=== PATIENT | male | born 1940 | race Caucasian/White ===

== ENCOUNTER 2016-08-25 12:30 | Inpatient (IN) | payer MEDICARE ==
[~2016-08-25] VITALS: Ht 182.9 cm; Wt 79.4 kg
--- NOTE | ~2016-08-25 | OR ---
PATIENT'S NAME: IRVING SHI [facility] AGE: 76 Y [address] ROOM: [id number] [place], [place] [address] LOCATION: GPCU ADMIT DATE: 08/25/2016 OR/Procedure Report DISCHARGE DATE: FAMILY PHYSICIAN: Dylon Clarke MD ATTENDING PHYSICIAN: Aashish Jackson SURGEON: Yvon Gordon DO GOLF COURSE PATROLLER: DATE OF PROCEDURE: 08/26/2016 PREOPERATIVE DIAGNOSIS: Right hydro-pneumothorax. POSTOPERATIVE DIAGNOSIS: Right hydro-pneumothorax with severely entrapped right middle lobe, right lower lobe, and partially entrapped right upper lobe. PROCEDURE PERFORMED: Right thoracotomy with total decortication and right middle lobectomy. BRIEF HISTORY: Mr. Shi is a 76-year-old white male who initially presented to [facility], on 08/04, with shortness of breath. He was evaluated and found to have pleural effusion. He underwent thoracentesis of 2 L of fluid. At that time, his lung failed to expand. A bronchoscopy was performed and failed to find any endobronchial lesions. He was ultimately discharged and on followup was found to have recurrence of the effusion and another thoracentesis was performed. He again failed to have re-expansion of the right lung. Cytology on both specimens was negative for malignancy. He was seen in the office again by Dr. Jackson, and found to have the persistent hydro-pneumothorax. He was admitted to [facility] and I was asked to see him in consultation. PROCEDURE DETAILS: He has been brought to the operative suite today for the above-noted procedure. He was sterilely prepped and draped in the usual fashion for right thoracotomy, placed into a lateral decubitus position. Dual- lumen endotracheal tube had been placed by Department of Anesthesiology. Posterior lateral incision was created 2 fingerbreadths below the scapular tip and we entered the pleural space in the fifth intercostal space. We found approximately 800 mL of serous fluid. This was evacuated and again sent for both cytologic and microbiologic sampling. Inspection of the pleural space showed marked entrapment of all 3 lobes, the middle lobe especially was entrapped in approximately the size of a lemon and the lower lobe was equally entrapped and upper lobes to only slightly lesser extent. There was some loose gelatinous collection of fluid as well. This was evacuated and sent for cytologic evaluation. Extensive decortication was carried out over the upper and lower lobes. Given the marked contraction and size of the middle lobe, I elected just to simply perform a middle lobectomy. The arterial supply to the middle lobe was dissected free and divided with vascular stapler as well as PATIENT'S NAME: IRVING SHI [facility] AGE: 76 Y [address] ROOM: [place] [address] [facility] ADMIT DATE: 08/25/2016 OR/Procedure Report DISCHARGE DATE: FAMILY PHYSICIAN: Dylon Clarke MD ATTENDING PHYSICIAN: Aashish Jackson the venous system and then the bronchial system. Two chest tubes were now placed, approximately 300 mL of blood loss was noted. Copious amounts of saline was used to irrigate the pleural space and we closed the intercostal incision with 4 [id number] #1 Ethibonds. Muscular layer was closed with running 0 Vicryl, adipose layer was closed with 2-0 Vicryl, and skin with 4-0 Monocryl. Chest tube was placed to the canister, however, no suction was turned on secondary to the air leak taking too much away from the ventilator and will be placed to suction once he was extubated. He was extubated and transferred to the recovery room with fairly large air leak as expected secondary to the total decortication. The patient otherwise tolerated the procedure well. No evidence of obvious malignancy or infection were encountered. DO ROSANA SMILEY/oswaldol /[id number] CC: Dylon Clarke MD d: 08/30/16 1240 t: 08/31/16 0754, OPERATIVE SUMMARY
--- NOTE | ~2016-08-25 | CON ---
PATIENT'S NAME: IRVING SHI [facility] AGE: 76 Y [address] ROOM: [place] [address] LOCATION: GPCU ADMIT DATE: 08/25/2016 Consultation DISCHARGE DATE: FAMILY PHYSICIAN: Dylon Clarke MD ATTENDING PHYSICIAN: Aashish Jackson DATE OF CONSULTATION: 08/25/2016 REFERRING PHYSICIAN: Aashish Jackson MD BRIEF HISTORY: Mr. Shi is a 76-year-old male who has had difficulties with recurring pleural effusion/hydropneumothorax. He has had 3 previous thoracentesis now with failure to re-expand the lung, and he presented to Dr. Jackson today with increasing shortness of breath. He had been seen by Dr. Arana as well in the past, and after a thoracentesis, a bronchoscopy was performed in July which was negative for any endobronchial lesions. All cytology to date has been negative. The patient states this has been a problem for the past several weeks. He states that he is short of breath today and does have some pain in his back which he relates to the fluid as it continues to build. Otherwise, he has no complaints. PAST MEDICAL HISTORY: Significant for the recurring hydropneumothorax, reportedly for congestive heart failure, COPD, and atrial fibrillation. PAST SURGICAL HISTORY: Significant for cataracts. CURRENT MEDICATIONS: The patient is unaware of what medicines he is taking at this time. 1. Does state he thinks he is taking some blood pressure medicine. 2. He has been on Coumadin in the past, has not taken any recently. 3. He has also been on Xarelto in the past, has not taken any recently. 4. He is on oxygen at home at this point in time, although this is a recent addition. SOCIAL HISTORY: The patient is a former smoker, quitting within the past month. REVIEW OF SYSTEMS: As per the history of chief complaint. PHYSICAL EXAMINATION: GENERAL: An alert and oriented white male, appears older than his stated age. He is wearing oxygen. PATIENT'S NAME: IRVING SHI [facility] AGE: 76 Y [address] ROOM: [address] [address] LOCATION: GPCU ADMIT DATE: 08/25/2016 Consultation DISCHARGE DATE: FAMILY PHYSICIAN: Dylon Clarke MD ATTENDING PHYSICIAN: Aashish Jackson HEENT: Examination shows his head to be normocephalic with no evidence of trauma. Eyes: He has marked deviation of the right eye and states he cannot see out of this eye. The left eye is normal in appearance. Nose is discolored. He states it has always been like this since he can remember. To me, it gives the appearance of amiodarone-related skin changes, but he cannot recall whether he has been on this medicine in the past. HEART: Irregularly irregular without gallop. LUNGS: Markedly diminished on the right, clear on the left, with occasional end-expiratory wheeze. He does have somewhat of a pectus excavatum as well. ABDOMEN: Soft and nontender. Bowel sounds are positive. No organomegaly is appreciated. EXTREMITIES: His upper extremities show no evidence of cyanosis, clubbing, or edema. His lower extremities do show evidence of venous stasis changes. He has mild pitting edema to the pretibial areas. NEUROLOGICAL: Cranial nerves 2 through 12 are grossly intact. He is alert and oriented x3. LABORATORY DATA: Review of the CAT scan shows hydropneumothorax on the right. This CAT scan is approximately 3 weeks old. His chest x-ray confirms similar findings. It shows evidence of trapped right middle and right lower lobe and right upper lobe. No masses are appreciated. IMPRESSION: 1. Right hydropneumothorax with trapping of right lobular segments. 2. Atrial fibrillation. 3. Reported history of heart failure in the remote past, the patient states approximately 10 years ago. He has had a recent echocardiogram per his recollection, but none of these records are available at this point. We will try and malloy them down. 4. Chronic obstructive pulmonary disease. He quit smoking approximately one month ago. PLAN AND RECOMMENDATIONS: We will try and malloy down some medical records, but he will need a right thoracotomy with total decortication. I have explained to him and his family the risks, benefits, and alternatives of this procedure including, but not limited to bleeding requiring transfusion, return to the operative suite, possibilities for prolonged air leak, prolonged chest tube, possibilities for pulmonary resection, possibilities for postoperative ventilation, and ICU stays. At this point in time, he agrees to proceed. We will tentatively plan to proceed in the a.m. of 08/26. PATIENT'S NAME: IRVING SHI [facility] AGE: 76 Y [address] ROOM: [place] [address] [facility] ADMIT DATE: 08/25/2016 Consultation DISCHARGE DATE: FAMILY PHYSICIAN: Dylon Clarke MD ATTENDING PHYSICIAN: Aashish Jackson DO ROSANA SMILEY/sol /[id number] CC: Dylon Clarke MD d: 08/25/16 1512 t: 08/26/16 163, CONSULTATION REPORT
--- NOTE | ~2016-08-25 | OR ---
PATIENT'S NAME: IRVING SHI [facility] AGE: 76 Y [address] [id number] [address] LOCATION: GICU ADMIT DATE: 08/25/2016 OR/Procedure Report DISCHARGE DATE: FAMILY PHYSICIAN: Dylon Clarke MD ATTENDING PHYSICIAN: Aashish Jackson SURGEON: Hany Francisco MD INTELLECTUAL PROPERTY LEGAL ASSISTANT: DATE OF PROCEDURE: 09/16/2016 PROCEDURE PERFORMED: The following lines were placed during the patient's right thoracotomy and repair of bronchopleural fistula. INDICATIONS FOR PROCEDURE: Irving Shi is a 76-year-old gentleman with a long cardiac history, who has chronic atrial fibrillation, congestive heart failure, type 2 diabetes, mild dementia, and history of congestive failure. He presented with hydropneumothorax necessitating a right thoracotomy and partial resection of lung on that side. 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 He will require a central line and an arterial line for tight control of blood pressure and for provision of vasoactives and monitoring CVP. An epidural will be used for postoperative pain per surgeon's request. A detailed discussion of risks and benefits was undertaken with Mr. Shi last night by Dr. Pierce. He agreed to the plan as stated. I met him in the preop holding area. He was relatively oriented and agreed to an epidural, which was placed in the preop holding area and I will refer the reader to the epidural sheet for details on that. Suffice it to say, it went well. DESCRIPTION OF PROCEDURE: He was taken to OR #4 where he underwent uneventful induction of general anesthesia and intubation with a 37 left double-lumen endotracheal tube. After this was accomplished and the airway secured, positioning was checked by fiberoptic bronchoscopy and procedure #[address] which is a central line. The patient has quite a bit of subcutaneous emphysema, and when I attempted to image his right internal jugular vein, all I got was white screen. I think this is due to the air layer underneath his skin and consequently, I placed the line using landmarks rather than ultrasonic guidance. I washed my hands and gloved and gowned while his neck was being prepped. He was placed in Trendelenburg position. Utilizing the apex of the lesser triangle, I inserted an 18-gauge needle just lateral to the carotid pulse obtaining dark venous blood on the first pass. The wire threaded without difficulty. A small skin diana was made, a dilator passed, and a quad lumen 16 cm, 8-1/2-Slovenian central line was placed and sutured in with 2-0 silk. All lumens flushed and vane freely. CVP was 16 on transduction. A sterile Tegaderm was used to cover the area, and at that point, Jovita Jennings, my anesthesia nurse placed a central line in the patient's right arm without PATIENT'S NAME: IRVING SHI [facility] AGE: 76 Y [address] ROOM: [address] [address] LOCATION: [facility] ADMIT DATE: 08/25/2016 OR/Procedure Report DISCHARGE DATE: FAMILY PHYSICIAN: Dylon Clarke MD ATTENDING PHYSICIAN: Aashish Jackson. Thank you very much for allowing me to participate in Mr. Shi's care. If you have any questions regarding these lines, please do not hesitate to call. HANY L MD PRESTON FRANCISCO/sol /[id number] d: 09/16/16 1700 t: 10/04/16 1120, OPERATIVE SUMMARY
--- NOTE | ~2016-08-25 | OR ---
PATIENT'S NAME: IRVING SHI [facility] AGE: 76 Y [address] ROOM: [address] [address] LOCATION: GPCU ADMIT DATE: 08/25/2016 OR/Procedure Report DISCHARGE DATE: 09/29/2016 FAMILY PHYSICIAN: Dylon Clarke MD ATTENDING PHYSICIAN: Aashish Jackson SURGEON: Yvon George DO MICROFILMING DOCUMENT PREPARER: DATE OF PROCEDURE: 09/16/2016 PREOPERATIVE DIAGNOSIS: Persistent air leak, history of trapped lung. POSTOPERATIVE DIAGNOSIS: Persistent air leak, history of trapped lung. PROCEDURE: Right thoracotomy with right lower lobectomy. BRIEF HISTORY: Mr. Shi is status post decortication with right middle lobectomy approximately 5 or 3 weeks ago. He has been had a persistent air leak that has waxed and waned, but has always been persistent. We have brought him back to the operative suite today for continued management. He has been sterilely prepped and draped in usual fashion after intubation dual- lumen endotracheal tube placed into a lateral decubitus position and his previous thoracotomy incision was reopened and we entered in the fifth intercostal space. All suture material was removed. Electrocautery used for dissection and hemostasis. The lung was decompressed. Right lower lobe was grossly and palpably consolidated. No stump leak was noted from the middle lobectomy resection and we circumferentially dissected through some scar tissue around the hilar area and gained control of the pulmonary artery and this is divided under vascular stapler and continued dissection was carried out carefully around the inferior pulmonary vein and this was also ligated with a vascular stapler and continued dissection with a pulmonary staplers to divide the parenchyma of the left upper and lower lobes was completed and then the bronchus of the lower lobe was divided with a stapler as well. The lower lobe was passed off. There was some air leak from the upper lobe, from the dissection was used to enter the pleural space, was approximated with 3-0 Prolene and the pleural patch was placed on to the area. Two chest tubes were replaced in the pleural cavity. Intercostal space was approximated again and then the muscular layers were closed in a layered fashion and incision was closed in layered fashion. Chest tubes placed to suction. The patient was extubated and transferred to recovery area in stable condition. YVON GEORGE DO PATIENT'S NAME: IRVING SHI [facility] AGE: 76 Y [address] ROOM: [place] [address] LOCATION: GPCU ADMIT DATE: 08/25/2016 OR/Procedure Report DISCHARGE DATE: 09/29/2016 FAMILY PHYSICIAN: Dylon Clarke MD ATTENDING PHYSICIAN: Aashish Jackson/sol /[id number] d: 10/03/169 t: 10/04/16 08, OPERATIVE SUMMARY
--- NOTE | ~2016-08-25 | CON ---
PATIENT'S NAME: IRVING WANG [facility] AGE: 76 Y [address] ROOM: [place] [address] LOCATION: GPCU ADMIT DATE: 08/25/2016 Consultation DISCHARGE DATE: FAMILY PHYSICIAN: Dylon Clarke MD ATTENDING PHYSICIAN: Aashish Jackson DATE OF CONSULTATION: 08/31/2016 REFERRING PHYSICIAN: Aashish Jackson MD REASON FOR CONSULT: Depressed mood, confusion, and agitation. HISTORY OF PRESENT ILLNESS: The patient is a 76-year-old male with a history of recurring pleural effusion and hydropneumothorax, status post thoracotomy. He was reportedly depressed and suicidal, then became confused, agitated, and forgetful, requiring as needed olanzapine. The patient is seen today in his room. He admits that he had become depressed and wondered how he was going to cope at home after his surgery, but yesterday, he became confused, did not know where he was and started "hallucinating. He says that he saw strange people in his room and did not know what to make of it. He became scared and thought that they were out to get him. He, however, states that he is doing pretty good today. He denies being depressed and looks forward to returning home. He denies other depressive symptoms and has no anxiety. The patient says that he now knows where he is and that he has "not hallucinated again." He denies other psychotic symptoms. He denies thoughts of self-harm or suicidal thoughts. He states that he was simply overwhelmed after his surgery. PAST PSYCHIATRIC HISTORY: The patient reports no prior history of psychiatric illness or hospitalization. He denies prior suicide attempts or history of self harm. PAST MEDICAL HISTORY: COPD, diabetes, coronary artery disease, recurrent hydropneumothorax, congestive heart failure, atrial fibrillation. MEDICATIONS: See medication list. ALLERGIES: NO KNOWN DRUG ALLERGIES. PAST FAMILY AND SOCIAL HISTORY: The patient is and has 3 adult children. He denies a history of trauma. 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 the patient PATIENT'S NAME: IRVING WANG [facility] AGE: 76 Y [address] ROOM: [place] [address] LOCATION: GPCU ADMIT DATE: 08/25/2016 Consultation DISCHARGE DATE: FAMILY PHYSICIAN: Dylon Clarke MD ATTENDING PHYSICIAN: Aashish Jackson denies current alcohol, tobacco, or illicit drug use. He is unaware of any history of mental illness in his family. REVIEW OF SYSTEMS: Ten systems reviewed and all others negative, except as noted in the history. MENTAL STATUS EXAMINATION: The patient is seated in a chair by his bed. He is pleasant and cooperative with the interview. He makes good eye contact. He has a normal psychomotor activity. His speech is normal in rate and volume. He describes his mood as euthymic. His affect is reactive and spontaneous, and he smiles easily. His thoughts are logical and goal directed. He denies current suicidal, homicidal, or violent ideations. He denies hallucinations, and no delusions are noted at interview. He is alert and oriented to person and place, but poorly oriented to time. His concentration is impaired. His memory recall is intact. His intelligence appears average. His insight and judgment are good. DIAGNOSES: 1. Delirium. 2. Adjustment disorder, unspecified. PLAN: Discussed assessment and plan with the patient and nursing staff. Reportedly, he had responded to as needed olanzapine. Recommend switching this medication to 5 mg at bedtime. Monitor the patient for adverse reactions. Continue other management and review as appropriate. Thank you for your consult. MD KATLIN PONCE/sol /[id number] d: 08/31/16 2357 t: 09/01/16 1329, CONSULTATION REPORT
--- NOTE | ~2016-08-25 | HP ---
PATIENT'S NAME: IRVING SHI [facility] AGE: 76 Y [address] ROOM: [place] [address] LOCATION: GPCU ADMIT DATE: 08/25/2016 History & Physical DISCHARGE DATE: FAMILY PHYSICIAN: Dylon Clarke MD ATTENDING PHYSICIAN: Aashish Jackson DATE OF SERVICE: CHIEF COMPLAINT: Shortness of breath. HISTORY OF PRESENT ILLNESS: Mr. Shi is a 76-year-old gentleman admitted with a recurrent/persistent hydropneumothorax. He initially presented to [facility] on 08/04/2016 with shortness of breath. He was evaluated and found to have a pleural effusion. He underwent thoracentesis with removal of 2 L of fluid. His lungs failed to expand, however. Dr. Arana did a bronchoscopy and failed to find any endobronchial lesions. He was ultimately discharged. In followup, he was found to have recurrence of his pleural effusion which again was tapped on August 11. He again failed to have re-expansion of the right lung. Cytology on both the specimens from his right pleural space was negative for malignant cells. He was seen again today in the office with persistent hydropneumothorax. He was admitted then for Thoracic Surgery intervention. PAST MEDICAL HISTORY: ALLERGIES: TO NO MEDICATIONS. ILLNESSES: 1. Chronic obstructive pulmonary disease. 2. Diabetes. 3. Coronary artery disease. MEDICATIONS: Include: 1. Nebulized albuterol. 2. Carvedilol 6.25 p.o. b.i.d. 3. Potassium 10 mEq daily. 4. Lasix 40 mg twice a day. 5. Metformin 1000 mg twice a day. 6. Oxygen 2.5 L at night and with activity. 7. Symbicort inhaler 2 puffs b.i.d. PATIENT'S NAME: IRVING SHI [facility] AGE: 76 Y [address] ROOM: [place] [address] LOCATION: GPCU ADMIT DATE: 08/25/2016 History & Physical DISCHARGE DATE: FAMILY PHYSICIAN: Dylon Clarke MD ATTENDING PHYSICIAN: Aashish Jackson FAMILY HISTORY: Negative for lung disease. SOCIAL HISTORY: . Lives independently in [place]. REVIEW OF SYSTEMS: No fever, chills, sweats, nausea, vomiting, diarrhea, chest pain, palpitations, neurologic, or psychiatric complaints. PHYSICAL EXAMINATION: GENERAL: Elderly chronically ill-appearing gentleman in no distress, but he is dyspneic when he walks. HEENT: Rhinophyma. Bilateral arcus senilis. CHEST: Hyperinflated. LUNGS: Diminished breath sounds on the right. HEART: Regular. ABDOMEN: Nontender. EXTREMITIES: Trace of edema. No clubbing. ASSESSMENT: Recurrent hydropneumothorax. PLAN: Thoracoscopic Surgery consultation. MD PONCHO MONTOYA/modkamaljit /[id number] CC: MD Yvon Roper DO D: [id number] T: [id number] HISTORY & PHYSICAL
--- NOTE | ~2016-08-25 | DS ---
PATIENT'S NAME: IRVING WANG [facility] AGE: 76 Y [address] ROOM: [id number] [place], [place] [address] LOCATION: GPCU ADMIT DATE: 08/25/2016 Discharge Summary DISCHARGE DATE: 09/29/2016 FAMILY PHYSICIAN: Dylon Clarke MD ATTENDING PHYSICIAN: Yvon George The patient is a 76-year-old white male with a right hydropneumothorax who was admitted by Dr. George to [facility] regarding said condition. The patient initially presented to the [facility] on August 04, 2016, with complaints of shortness of breath. He was evaluated in their facility and was found to have a pleural effusion. He underwent a thoracentesis yielding 2 L of fluid. He did not have reexpansion of his lung at that time. He underwent a bronchoscopy. There were no endobronchial lesions. He was then discharged and then later found in followup to have recurrence of the effusion and underwent another thoracentesis. Again, he did not have reexpansion of his right lung. All cytology was negative for malignancy. He re-presented to Dr. Jackson's office with complaints of shortness of breath. He was found to have the hydropneumothorax and was admitted to [facility]. Dr. George proceeded with a right thoracotomy with total decortication and a right middle lobectomy. This was on August 26, 2016. Following the procedure, the patient transferred to the progressive care floor. He had an epidural in place. A chest tube was placed at the time of this surgical procedure. The patient was found to have a preoperative urinary tract infection and was treated with appropriate antibiotic therapy. In addition, the patient was seen by wound nurses for his severe bilateral lower extremity edema for which he had weeping of the legs. They did wrap and monitor his legs throughout the hospital stay. The patient did have an epidural placed for pain control at the time of surgery. Pain management was quite good overall. The patient did work with PT, OT, and Pulmonary Rehab for strengthening purposes. His chest tube output and air leak were monitored. The patient did have a very significant air leak following surgery as well as copious amounts of chest tube output. He was diuresed as well with Lasix. He was monitored with a proBNP level which did show some decline after a few days. On August 31, 2016, the epidural was shut off. The patient did have some confused periods. He was agitated, depressed, and suicidal. He actually wrote a suicide note. He was started on 10 mg of Zyprexa until which time Dr. Barajas from [facility] could evaluate the patient for suicidal ideations. The patient was recommended to be placed on 5 mg of olanzapine at bedtime. The patient was also found to have an elevated TSH and thyroid medication was adjusted. Again, the patient continued to have high chest tube output as well as significant air leak with fairly significant subcutaneous air throughout. We were eventually able to get out his Baez catheter. Previous attempts were fraught with urinary retention. However, the Baez catheter was successfully PATIENT'S NAME: [facility]ING [facility] AGE: 76 Y [address] ROOM: [address] [address] LOCATION: GPCU ADMIT DATE: 08/25/2016 Discharge Summary DISCHARGE DATE: 09/29/2016 FAMILY PHYSICIAN: Dylon Clarke MD ATTENDING PHYSICIAN: Yvon George. We did put the patient on high-flow for a period of time to try to clear out the subcutaneous air. This persisted for approximately 1 week before it began to relent. At day 20, the patient continued with persistent air leak and significant pleural fluid output which prevented us from being able to remove the chest tube. We therefore did need to discuss with the patient going back to the OR secondary to the bronchopleural fistula and proceed with a right thoracotomy with right lower lobectomy. The patient consented and the procedure was performed on 09/16/2016, by Dr. George. Following the surgery, the patient went back up to the progressive care floor. He was found to be hypotensive postoperatively. He did require a adrienne and Levophed drip, and therefore went up to the ICU. We did have to shut his epidural off secondary to the hypotensive issues. His Zyprexa was decreased to 2.5 mg at bedtime. The patient's demeanor did not improve. The patient was transferred to the progressive care floor. He continued to work with PT/OT and pulmonary rehab. We did add colchicine to his medication regimen to help decrease the fluid output. We were able then to get the Zyprexa decreased. Overall, the patient was feeling much better. We were able to discontinue his Baez catheter yet again as we had placed this at the time of surgery. We did place his chest tube to water seal; however, he still had a persistent air leak and fair quantities of chest tube output. The patient was getting pretty down about remaining in the hospital and we did talk about placing the chest tube to a Heimlich valve connected to a Baez with a leg bag kit. We discussed this with the patient's ex- who does help take care of him and home health care services. All in all, everyone felt that it was manageable and therefore we proceeded in transitioning this over to the Heimlich. The patient was therefore found stable for discharge home on 09/29/2016. Incidentally, the patient's pathology from August 26, 2016, returned showing fibrosis, chronic inflammation, and granulation tissue. His pathology on September 16, 2016, showed right lung with organization of pneumonia and infarction associated with pleuritis/clinically bronchopleural fistula. DISCHARGE ORDERS: Diet with no restrictions. Activity levels as tolerated. Dressing changes to include Allevyn foam dressing on the proximal thoracotomy incision for protection only. May change every 3 days/p.r.n. to decrease risk of tearing off the scab. Change the chest tube site dressing p.r.n. Change the bilateral forearm dressings daily. These are secondary to skin tear. Home Health is to keep documentation of the total 24-hour output coming from the chest bag connected to the Heimlich valve and the total to be reported. They may empty the b.i.d./p.r.n., but does not keep an accurate total. SECONDARY DIAGNOSES: 1. 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 [place] [facility] [place] [place] [address] LOCATION: GPCU ADMIT DATE: 08/25/2016 Discharge Summary DISCHARGE DATE: 09/29/2016 FAMILY PHYSICIAN: Dylon Clarke MD ATTENDING PHYSICIAN: Yvon George. 2. Congestive heart failure. 3. Chronic obstructive pulmonary disease. 4. History of atrial fibrillation. 5. History of tobacco abuse. 6. Diabetes mellitus. 7. Postop delirium. 8. Hypothyroidism with a TSH of 11.4 and a free T4 of 1.0. 9. Urinary retention. FOLLOWUP APPOINTMENTS: Dr. George and Saritha on 10/06/2016 at 1:00 p.m., Dr. Jackson on 10/13/2016 at 11:45, and Dr. Guerrero on 10/17/2016 at 10:45. DISCHARGE MEDICATIONS: 1. Glucophage 1000 mg twice a day. 2. K-Tab 20 mEq daily. 3. Lasix 40 mg daily. 4. Coreg 6.25 mg daily. 5. Albuterol 2 mg oral t.i.d. 6. Symbicort 1 puff per inhalation twice a day. 7. Colchicine 0.6 mg twice a day. 8. Pepcid 20 mg daily. 9. Amaryl 2 mg daily. 10. Levaquin 500 mg daily. 11. Levothyroxine 50 mcg daily. 12. Polyethylene glycol 17 g daily. 13. Flomax 0.4 mg at bedtime. 14. Olmitz 5/325 one to two every 4-6 hours as needed. 15. Tylenol 650 mg p.r.n. The patient's ex- verbalized understanding of the patient's discharge orders. The patient discharged to home with home health care services for whom we will be in contact with. The patient in stable condition. PADMINI NORIEGA APRN FOR YVON GEORGE, DLQ/modl /[id number] d: 10/15/16 0421 t: 10/17/16 1605, DISCHARGE SUMMARY
--- NOTE | ~2016-08-25 | PUL ---
PATIENT'S NAME: IRVING WANG [facility] AGE: 76 Y [address] ROOM: [place] [address] LOCATION: GPCU ADMIT DATE: 08/25/2016 Pulmonary DISCHARGE DATE: 09/29/2016 FAMILY PHYSICIAN: Dylon Clarke MD ATTENDING PHYSICIAN: Aashish Jackson NAME OF PROCEDURE: Pulmonary Function Test DATE OF PROCEDURE: September 22, 2016 TECH: NOELLE Núñez REASON FOR EVALUATION: COPD PROCEDURES PERFORMED: Spirometry with bronchodilator assessment. Measurement of maximum voluntary ventilation. Measurement of lung volumes. Measurement of diffusion capacity. RESULTS: Spirometry showed pre bronchodilator FVC was 1.66 liters, 36% of predicted; post bronchodilator FVC was 1.8 liters, 39% predicted; pre bronchodilator FEV1 was 1.26 liters, 37% predicted; post-bronchodilator FEV1 was 1.1 liters, 33% of predicted. FEV1/FVC was 76 %. FEF 25- 75% was 1.06 liters, 43% of predicted. Maximum voluntary ventilation was 40 liters/minute, 31% of predicted. This data did not change significantly following an inhaled bronchodilator. Lung volumes showed total lung capacity was 5.12 liters, 74% of predicted; functional residual capacity was 4.05 liters, 97% of predicted. Residual volume was 2.79 liters, 102% of predicted. Diffusion capacity not adjusted for hemoglobin was 37% of predicted. Single breath alveolar volume was 2.53 liters which is a poor estimate of total lung capacity. The flow volume loop pattern is restrictive. PHYSICIAN INTERPRETATION: The above data and the corresponding flow volume curves are most compatible with restrictive defect. There is evidence severe gas transfer impairment. MD ZENON LUCIO/josé miguel PATIENT'S NAME: IRVING WANG [facility] AGE: 76 Y [address] ROOM: [place] [address] LOCATION: GPCU ADMIT DATE: 08/25/2016 Pulmonary DISCHARGE DATE: 09/29/2016 FAMILY PHYSICIAN: Dylon Clarke MD ATTENDING PHYSICIAN: Aashish Jackson /[id number] dtt: 10/06/16 1723 , BRYAN INFANTE dtd: 09/30/16 0813
--- NOTE | ~2016-08-25 | OR ---
PATIENT'S NAME: IRVING WANG [facility] AGE: 76 Y [address] ROOM: [place] [address] LOCATION: CU ADMIT DATE: 08/25/2016 OR/Procedure Report DISCHARGE DATE: FAMILY PHYSICIAN: Dylon Clarke MD ATTENDING PHYSICIAN: Aashish Jackson SURGEON: Good Banks MD AGRONOMY SUPERVISOR: DATE OF PROCEDURE: 08/26/2016 PROCEDURE: Right internal jugular central venous catheter. INDICATION: The patient is going to need right thoracotomy with decortication and lobe resection. DESCRIPTION OF PROCEDURE: The patient was lying supine on the operating table in slight Trendelenburg position. The right neck and chest were prepped with Betadine x3, Betadine 2%. Maximal sterile barriers were worn at all times. Ultrasound was used to visualize internal jugular vein and real-time guidance of the introducer needle. Single stick dark nonpulsatile blood found on return and the wire was threaded easily. The ultrasound was then used to visualize the wire and internal jugular vein. The skin nicked, dilated; and a 2-lumen, 8-Slovak, 16-cm catheter was placed over the wire without complication and the wire was removed. It was sutured in place. All ports withdrew. Blood flushed easily. Sterile dressing applied on top. Chest x- ray ordered in the ICU. GOOD BANKS MD JJP/modl /[id number] d: 08/26/163 t: 09/05/16 1251, OPERATIVE SUMMARY
[2016-08-25] MEDS ORDERED: GLUCOPHAGE1000 MG PO (14:18)
[2016-08-25] MEDS ORDERED: K-TAB 10MEQ10 MEQ PO (14:19)
[2016-08-25] MEDS ORDERED: LASIX20 MG PO (14:20)
[2016-08-25] MEDS ORDERED: COREG6.25 MG PO (14:21)
[2016-08-25] MEDS ORDERED: ALBUTEROL S2 MG/5 ML PO (14:21)
[2016-08-25] MEDS ORDERED: SYMBICORT 16010.2 GM INH (14:21)
[2016-08-25] MEDS ORDERED: OXYGEN M-15 INH (14:26)
[2016-08-25 14:40] LABS: PROTIME 12.6 SECONDS (9.8-11.4)
[2016-08-25 14:42] LABS: ALBUMIN 3.1 gm/dL (3.5-5.0); ANION GAP 12.2 (10.0-19.0); CALCIUM 8.8 mg/dL (8.5-10.5); CREATININE 0.8 mg/dL (0.6-1.3); TOTAL BILIRUBIN 1.8 mg/dL (0.0-1.5); TOTAL PROTEIN 7.3 g/dL (6.0-8.4)
[2016-08-25 14:43] LABS: POTASSIUM 4.2 mMol/L (3.7-5.1)
[2016-08-25 15:15] LABS: BASOPHIL % 0.4 %; EOSINOPHIL # 0.1 K/uL (0.0-0.5); EOSINOPHIL % 0.8 %; HEMATOCRIT 42.5 % (37.0-53.0); HEMOGLOBIN 14.8 g/dL (11.0-16.0); IMMATURE GRANULOCYTE # 0.1 K/uL (0.0-0.3); IMMATURE GRANULOCYTE % 0.6 %; LYMPHOCYTE # 1.6 K/uL (0.8-4.0); LYMPHOCYTE % 16.4 %; MCH 32.7 pg (27.0-34.0); MCHC 34.8 gm/dL (32.0-36.5); MCV 93.8 fl (83.0-98.0); MONOCYTE # 1.3 K/uL (0.0-1.0); MPV 11.1 fl (9.4-12.4); NEUTROPHIL # (ANC) 6.8 K/uL (1.4-9.0); NEUTROPHIL % 68.8 %; NRBC % 0 /100WBC (0-0.00); PLATELET COUNT 181 K/uL (150-450); RBC 4.53 M/uL (3.50-5.50); RDW-CV 13.1 % (11.9-14.6); WBC 9.9 K/uL (4.0-11.0)
[2016-08-25 15:57] LABS: BLOOD URINE 10 /UL (NEGATIVE); COLOR URINE YELLOW (YELLOW); GLUCOSE URINE NEGATIVE (NEGATIVE); KETONE URINE NEGATIVE (NEGATIVE); LEUKOCYTES URINE 25 /UL (NEGATIVE); NITRITE URINE NEGATIVE (NEGATIVE); PROTEIN URINE 15 mg/dL (NEGATIVE); SPEC GRAVITY URINE 1.015 (1.003-1.035); TURBIDITY URINE CLEAR (CLEAR); UROBILINOGEN URINE 12 mg/dL (NORMAL)
[2016-08-25 16:07] LABS: EPITHELIAL URINE 0-2 #/HPF (NEGATIVE); RBC URINE 0-2 #/HPF (NEGATIVE)
[2016-08-25 16:25] LABS: BACTERIA URINE FEW (NEGATIVE)
[2016-08-25 16:26] LABS: AMORPHOUS URINE 1+ (NEGATIVE)
[2016-08-26 11:13] LABS: BICARBONATE 29.1 mmol/L (18.0-23.0); PCO2 45 mmHg (35-45); PO2 427 mmHg (80-90)
[2016-08-26 11:14] LABS: POTASSIUM 3.7 mEq/L (3.7-5.1); SODIUM 131 mEq/L (135-145)
[2016-08-26 13:13] LABS: HEMATOCRIT 35.2 % (37.0-53.0)
[2016-08-27 05:33] LABS: ALBUMIN 2.6 gm/dL (3.5-5.0); CREATININE 0.9 mg/dL (0.6-1.3); PHOSPHORUS 3.1 mg/dL (2.5-4.9)
[2016-08-27 05:37] LABS: CALCIUM 7.2 mg/dL (8.5-10.5)
[2016-08-27 05:58] LABS: BASOPHIL # 0.1 K/uL (0.0-0.2); BASOPHIL % 0.6 %; EOSINOPHIL % 0.1 %; HEMATOCRIT 37.8 % (37.0-53.0); HEMOGLOBIN 12.6 g/dL (11.0-16.0); IMMATURE GRANULOCYTE # 0.1 K/uL (0.0-0.3); IMMATURE GRANULOCYTE % 0.6 %; LYMPHOCYTE # 2.1 K/uL (0.8-4.0); LYMPHOCYTE % 14.4 %; MCH 31.3 pg (27.0-34.0); MCHC 33.3 gm/dL (32.0-36.5); MONOCYTE # 1.5 K/uL (0.0-1.0); MONOCYTE % 10.3 %; MPV 10.6 fl (9.4-12.4); NEUTROPHIL # (ANC) 10.6 K/uL (1.4-9.0); NRBC % 0 /100WBC (0-0.00); PLATELET COUNT 198 K/uL (150-450); RBC 4.02 M/uL (3.50-5.50); RDW-CV 13.2 % (11.9-14.6); WBC 14.3 K/uL (4.0-11.0)
[2016-08-29 04:21] LABS: ALBUMIN 2.5 gm/dL (3.5-5.0); ANION GAP 13.9 (10.0-19.0); CALCIUM 8.1 mg/dL (8.5-10.5); PHOSPHORUS 2.3 mg/dL (2.5-4.9); POTASSIUM 4.9 mMol/L (3.7-5.1)
[2016-08-30 08:04] LABS: BASOPHIL % 0.4 %; EOSINOPHIL # 0.2 K/uL (0.0-0.5); EOSINOPHIL % 1.8 %; HEMOGLOBIN 11.9 g/dL (11.0-16.0); IMMATURE GRANULOCYTE # 0.1 K/uL (0.0-0.3); IMMATURE GRANULOCYTE % 0.9 %; LYMPHOCYTE # 1.8 K/uL (0.8-4.0); LYMPHOCYTE % 17.9 %; MCH 32.1 pg (27.0-34.0); MCV 91.6 fl (83.0-98.0); MONOCYTE # 1.1 K/uL (0.0-1.0); MONOCYTE % 11.3 %; MPV 10.6 fl (9.4-12.4); NEUTROPHIL # (ANC) 6.7 K/uL (1.4-9.0); NEUTROPHIL % 67.7 %; NRBC % 0 /100WBC (0-0.00); PLATELET COUNT 190 K/uL (150-450); RBC 3.71 M/uL (3.50-5.50); WBC 9.9 K/uL (4.0-11.0)
[2016-08-30 08:17] LABS: ALBUMIN 2.5 gm/dL (3.5-5.0); ANION GAP 13.5 (10.0-19.0); CREATININE 1.3 mg/dL (0.6-1.3); PHOSPHORUS 2.6 mg/dL (2.5-4.9); POTASSIUM 5.5 mMol/L (3.7-5.1)
[2016-08-30 13:18] LABS: BILIRUBIN URINE NEGATIVE (NEGATIVE); BLOOD URINE 250 /UL (NEGATIVE); COLOR URINE YELLOW (YELLOW); GLUCOSE URINE NEGATIVE (NEGATIVE); KETONE URINE NEGATIVE (NEGATIVE); LEUKOCYTES URINE 500 /UL (NEGATIVE); NITRITE URINE NEGATIVE (NEGATIVE); PROTEIN URINE 15 mg/dL (NEGATIVE); TURBIDITY URINE CLEAR (CLEAR); UROBILINOGEN URINE NORMAL (NORMAL)
[2016-08-30 13:32] LABS: EPITHELIAL URINE 0-2 #/HPF (NEGATIVE); WBC URINE 0-2 #/HPF (NEGATIVE)
[2016-08-30 13:33] LABS: BACTERIA URINE RARE (NEGATIVE); MUCUS URINE 1+ (NEGATIVE)
[2016-08-30 20:23] LABS: ALBUMIN 2.3 gm/dL (3.5-5.0); ANION GAP 12.7 (10.0-19.0); CALCIUM 7.6 mg/dL (8.5-10.5); CREATININE 1.1 mg/dL (0.6-1.3); PHOSPHORUS 2.8 mg/dL (2.5-4.9)
[2016-08-30 20:27] LABS: POTASSIUM 3.7 mMol/L (3.7-5.1)
[2016-08-31 11:21] LABS: ALBUMIN 2.3 gm/dL (3.5-5.0); ANION GAP 12.9 (10.0-19.0); CALCIUM 7.8 mg/dL (8.5-10.5); POTASSIUM 3.9 mMol/L (3.7-5.1); TOTAL PROTEIN 5.8 g/dL (6.0-8.4)
[2016-08-31 11:25] LABS: TOTAL BILIRUBIN 0.8 mg/dL (0.0-1.5)
[2016-09-01 07:34] LABS: BASOPHIL # 0.1 K/uL (0.0-0.2); BASOPHIL % 0.6 %; EOSINOPHIL # 0.3 K/uL (0.0-0.5); EOSINOPHIL % 3.1 %; HEMATOCRIT 38.8 % (37.0-53.0); HEMOGLOBIN 13.1 g/dL (11.0-16.0); IMMATURE GRANULOCYTE # 0.2 K/uL (0.0-0.3); LYMPHOCYTE # 2.6 K/uL (0.8-4.0); LYMPHOCYTE % 25.2 %; MCH 31.3 pg (27.0-34.0); MCHC 33.8 gm/dL (32.0-36.5); MCV 92.8 fl (83.0-98.0); MONOCYTE # 1.2 K/uL (0.0-1.0); MONOCYTE % 12.2 %; NEUTROPHIL # (ANC) 5.8 K/uL (1.4-9.0); NEUTROPHIL % 56.9 %; NRBC % 0 /100WBC (0-0.00); PLATELET COUNT 244 K/uL (150-450); RBC 4.18 M/uL (3.50-5.50); RDW-CV 13.4 % (11.9-14.6); WBC 10.1 K/uL (4.0-11.0)
[2016-09-01 07:43] LABS: ALBUMIN 2.5 gm/dL (3.5-5.0); CALCIUM 8.2 mg/dL (8.5-10.5); CREATININE 1.1 mg/dL (0.6-1.3); TOTAL BILIRUBIN 0.9 mg/dL (0.0-1.5); TOTAL PROTEIN 6.4 g/dL (6.0-8.4)
[2016-09-03 04:11] LABS: ALBUMIN 2.6 gm/dL (3.5-5.0); ANION GAP 12.5 (10.0-19.0); CALCIUM 8.1 mg/dL (8.5-10.5); CREATININE 0.9 mg/dL (0.6-1.3); PHOSPHORUS 2.1 mg/dL (2.5-4.9); POTASSIUM 4.5 mMol/L (3.7-5.1)
[2016-09-04 03:27] LABS: ALBUMIN 2.6 gm/dL (3.5-5.0); ANION GAP 12.4 (10.0-19.0); CREATININE 0.9 mg/dL (0.6-1.3); POTASSIUM 4.4 mMol/L (3.7-5.1); TOTAL BILIRUBIN 0.8 mg/dL (0.0-1.5)
[2016-09-07 05:05] LABS: BASOPHIL % 0.3 %; EOSINOPHIL # 0.1 K/uL (0.0-0.5); EOSINOPHIL % 0.6 %; HEMATOCRIT 31.2 % (37.0-53.0); HEMOGLOBIN 10.7 g/dL (11.0-16.0); IMMATURE GRANULOCYTE # 0.1 K/uL (0.0-0.3); IMMATURE GRANULOCYTE % 0.7 %; LYMPHOCYTE # 2.6 K/uL (0.8-4.0); LYMPHOCYTE % 22.8 %; MCH 31.8 pg (27.0-34.0); MCHC 34.3 gm/dL (32.0-36.5); MCV 92.9 fl (83.0-98.0); MONOCYTE # 0.9 K/uL (0.0-1.0); MONOCYTE % 7.6 %; MPV 9.7 fl (9.4-12.4); NEUTROPHIL # (ANC) 7.8 K/uL (1.4-9.0); NRBC % 0 /100WBC (0-0.00); PLATELET COUNT 220 K/uL (150-450); RBC 3.36 M/uL (3.50-5.50); WBC 11.5 K/uL (4.0-11.0)
[2016-09-07 05:20] LABS: ALBUMIN 3.3 gm/dL (3.5-5.0); ANION GAP 13.7 (10.0-19.0); CALCIUM 8.1 mg/dL (8.5-10.5); CREATININE 0.8 mg/dL (0.6-1.3); PHOSPHORUS 3.1 mg/dL (2.5-4.9); POTASSIUM 3.7 mMol/L (3.7-5.1)
[2016-09-10 04:15] LABS: ALBUMIN 2.8 gm/dL (3.5-5.0); ANION GAP 12.7 (10.0-19.0); CALCIUM 8.7 mg/dL (8.5-10.5); CREATININE 0.8 mg/dL (0.6-1.3); PHOSPHORUS 2.8 mg/dL (2.5-4.9); POTASSIUM 4.7 mMol/L (3.7-5.1)
[2016-09-13 05:09] LABS: HEMATOCRIT 32.3 % (37.0-53.0); HEMOGLOBIN 10.9 g/dL (11.0-16.0); MCH 32.2 pg (27.0-34.0); MCHC 33.7 gm/dL (32.0-36.5); MCV 95.3 fl (83.0-98.0); MPV 10.2 fl (9.4-12.4); PLATELET COUNT 254 K/uL (150-450); RBC 3.39 M/uL (3.50-5.50); RDW-CV 14.4 % (11.9-14.6); WBC 8.8 K/uL (4.0-11.0)
[2016-09-13 05:27] LABS: ALBUMIN 2.4 gm/dL (3.5-5.0); ANION GAP 10.8 (10.0-19.0); CALCIUM 8.3 mg/dL (8.5-10.5); CREATININE 0.8 mg/dL (0.6-1.3); POTASSIUM 4.8 mMol/L (3.7-5.1); TOTAL BILIRUBIN 0.8 mg/dL (0.0-1.5); TOTAL PROTEIN 5.7 g/dL (6.0-8.4)
[2016-09-13 05:47] LABS: ABSOLUTE NEUTROPHIL CT (ANC) 5.5 K/uL (1.4-9.0); BANDED NEUTROPHIL # 0.4 K/uL (0.0-0.1); BANDED NEUTROPHILS % 4 %; LYMPHOCYTE # 2.4 K/uL (0.8-4.0); LYMPHOCYTE % 27 %; MONOCYTE # 0.2 K/uL (0.0-1.0); SEGMENTED NEUTROPHIL # 5.1 K/uL (1.4-9.0); SEGMENTED NEUTROPHIL % 58 %
[2016-09-16 05:34] LABS: ALBUMIN 2.4 gm/dL (3.5-5.0); ANION GAP 10.6 (10.0-19.0); BLOOD UREA NITROGEN 20 mg/dL (6-24); CALCIUM 8.2 mg/dL (8.5-10.5); CHLORIDE 105 mMol/L (96-110); CO2 24 mMol/L (22-32); CREATININE 0.7 mg/dL (0.6-1.3); PHOSPHORUS 3.4 mg/dL (2.5-4.9); POTASSIUM 4.6 mMol/L (3.7-5.1); SODIUM 135 mMol/L (135-145)
[2016-09-16 12:14] LABS: HEMATOCRIT 35.8 % (37.0-53.0); HEMOGLOBIN 12.2 g/dL (11.0-16.0)
[2016-09-16 20:05] LABS: BICARBONATE 20.3 mmol/L (18.0-23.0); PCO2 41 mmHg (35-45); PO2 201 mmHg (80-90)
[2016-09-16 20:06] LABS: POTASSIUM 4.9 mEq/L (3.7-5.1); SODIUM 137 mEq/L (135-145)
[2016-09-17 04:22] LABS: BASOPHIL % 0.2 %; EOSINOPHIL # 1.4 K/uL (0.0-0.5); EOSINOPHIL % 9.5 %; HEMATOCRIT 33.9 % (37.0-53.0); HEMOGLOBIN 11.2 g/dL (11.0-16.0); IMMATURE GRANULOCYTE # 0.2 K/uL (0.0-0.3); IMMATURE GRANULOCYTE % 1.2 %; LYMPHOCYTE # 2.8 K/uL (0.8-4.0); LYMPHOCYTE % 19.2 %; MCH 31.4 pg (27.0-34.0); MONOCYTE # 1.3 K/uL (0.0-1.0); MONOCYTE % 9.2 %; MPV 9.6 fl (9.4-12.4); NEUTROPHIL # (ANC) 8.8 K/uL (1.4-9.0); NEUTROPHIL % 60.7 %; NRBC % 0 /100WBC (0-0.00); PLATELET COUNT 226 K/uL (150-450); RBC 3.57 M/uL (3.50-5.50); RDW-CV 15.6 % (11.9-14.6); WBC 14.4 K/uL (4.0-11.0)
[2016-09-17 04:34] LABS: ALBUMIN 2.8 gm/dL (3.5-5.0); ANION GAP 12.6 (10.0-19.0); BLOOD UREA NITROGEN 18 mg/dL (6-24); CALCIUM 7.6 mg/dL (8.5-10.5); CHLORIDE 106 mMol/L (96-110); CO2 23 mMol/L (22-32); CREATININE 0.7 mg/dL (0.6-1.3); PHOSPHORUS 3.7 mg/dL (2.5-4.9); POTASSIUM 4.6 mMol/L (3.7-5.1); SODIUM 137 mMol/L (135-145)
[2016-09-19 04:50] LABS: BASOPHIL # 0.1 K/uL (0.0-0.2); BASOPHIL % 0.5 %; EOSINOPHIL # 1.5 K/uL (0.0-0.5); EOSINOPHIL % 14.6 %; HEMATOCRIT 29.4 % (37.0-53.0); HEMOGLOBIN 9.9 g/dL (11.0-16.0); IMMATURE GRANULOCYTE # 0.1 K/uL (0.0-0.3); IMMATURE GRANULOCYTE % 1.4 %; MCH 31.6 pg (27.0-34.0); MCHC 33.7 gm/dL (32.0-36.5); MCV 93.9 fl (83.0-98.0); MONOCYTE # 1.2 K/uL (0.0-1.0); MONOCYTE % 11.6 %; MPV 9.7 fl (9.4-12.4); NEUTROPHIL # (ANC) 5.5 K/uL (1.4-9.0); NEUTROPHIL % 52.9 %; NRBC % 0 /100WBC (0-0.00); PLATELET COUNT 190 K/uL (150-450); RBC 3.13 M/uL (3.50-5.50); WBC 10.3 K/uL (4.0-11.0)
[2016-09-19 04:57] LABS: ALBUMIN 2.3 gm/dL (3.5-5.0); ALK PHOS 70 IU/L (33-138); ALT 11 IU/L (12-78); ANION GAP 12.5 (10.0-19.0); AST 14 IU/L (10-40); BLOOD UREA NITROGEN 14 mg/dL (6-24); CALCIUM 7.7 mg/dL (8.5-10.5); CHLORIDE 103 mMol/L (96-110); CO2 22 mMol/L (22-32); CREATININE 0.5 mg/dL (0.6-1.3); POTASSIUM 4.5 mMol/L (3.7-5.1); SODIUM 133 mMol/L (135-145); TOTAL BILIRUBIN 0.9 mg/dL (0.0-1.5); TOTAL PROTEIN 5.3 g/dL (6.0-8.4)
[2016-09-23 10:34] LABS: BASOPHIL # 0.1 K/uL (0.0-0.2); BASOPHIL % 0.5 %; EOSINOPHIL # 0.9 K/uL (0.0-0.5); EOSINOPHIL % 7.3 %; HEMATOCRIT 31.1 % (37.0-53.0); HEMOGLOBIN 10.4 g/dL (11.0-16.0); IMMATURE GRANULOCYTE # 0.1 K/uL (0.0-0.3); IMMATURE GRANULOCYTE % 0.9 %; LYMPHOCYTE # 2.3 K/uL (0.8-4.0); LYMPHOCYTE % 19.2 %; MCH 31.5 pg (27.0-34.0); MCHC 33.4 gm/dL (32.0-36.5); MCV 94.2 fl (83.0-98.0); MONOCYTE # 1.4 K/uL (0.0-1.0); MONOCYTE % 11.9 %; MPV 9.3 fl (9.4-12.4); NEUTROPHIL # (ANC) 7.2 K/uL (1.4-9.0); NEUTROPHIL % 60.2 %; NRBC % 0 /100WBC (0-0.00); RDW-CV 15.3 % (11.9-14.6); WBC 11.9 K/uL (4.0-11.0)
[2016-09-23 10:38] LABS: PLATELET COUNT 271 K/uL (150-450)
[2016-09-23 11:03] LABS: ALBUMIN 2.2 gm/dL (3.5-5.0); ALK PHOS 91 IU/L (33-138); ALT 11 IU/L (12-78); ANION GAP 10.5 (10.0-19.0); AST 9 IU/L (10-40); BLOOD UREA NITROGEN 10 mg/dL (6-24); CALCIUM 7.9 mg/dL (8.5-10.5); CHLORIDE 101 mMol/L (96-110); CO2 25 mMol/L (22-32); CREATININE 0.6 mg/dL (0.6-1.3); POTASSIUM 4.5 mMol/L (3.7-5.1); SODIUM 132 mMol/L (135-145); TOTAL PROTEIN 5.5 g/dL (6.0-8.4)
[2016-09-23 11:04] LABS: TOTAL BILIRUBIN 0.6 mg/dL (0.0-1.5)
[2016-09-29 03:21] LABS: BASOPHIL # 0.1 K/uL (0.0-0.2); BASOPHIL % 0.5 %; EOSINOPHIL # 1.6 K/uL (0.0-0.5); EOSINOPHIL % 10.8 %; HEMATOCRIT 32.7 % (37.0-53.0); HEMOGLOBIN 11.1 g/dL (11.0-16.0); IMMATURE GRANULOCYTE # 0.1 K/uL (0.0-0.3); IMMATURE GRANULOCYTE % 0.6 %; LYMPHOCYTE # 2.3 K/uL (0.8-4.0); LYMPHOCYTE % 15.9 %; MCH 31.6 pg (27.0-34.0); MCHC 33.9 gm/dL (32.0-36.5); MCV 93.2 fl (83.0-98.0); MONOCYTE # 1.8 K/uL (0.0-1.0); MONOCYTE % 12.1 %; MPV 9.5 fl (9.4-12.4); NEUTROPHIL # (ANC) 8.8 K/uL (1.4-9.0); NEUTROPHIL % 60.1 %; NRBC % 0 /100WBC (0-0.00); PLATELET COUNT 278 K/uL (150-450); RBC 3.51 M/uL (3.50-5.50); WBC 14.6 K/uL (4.0-11.0)
[2016-09-29 03:38] LABS: ALBUMIN 2.3 gm/dL (3.5-5.0); ALK PHOS 130 IU/L (33-138); ALT 11 IU/L (12-78); ANION GAP 10.4 (10.0-19.0); AST 15 IU/L (10-40); BLOOD UREA NITROGEN 15 mg/dL (6-24); CALCIUM 7.9 mg/dL (8.5-10.5); CHLORIDE 101 mMol/L (96-110); CO2 23 mMol/L (22-32); CREATININE 0.6 mg/dL (0.6-1.3); POTASSIUM 5.4 mMol/L (3.7-5.1); SODIUM 129 mMol/L (135-145); TOTAL BILIRUBIN 0.6 mg/dL (0.0-1.5); TOTAL PROTEIN 5.7 g/dL (6.0-8.4)
[2016-09-29 06:47] LABS: ALBUMIN 2.4 gm/dL (3.5-5.0); ANION GAP 12.4 (10.0-19.0); BLOOD UREA NITROGEN 15 mg/dL (6-24); CALCIUM 8.1 mg/dL (8.5-10.5); CHLORIDE 100 mMol/L (96-110); CO2 24 mMol/L (22-32); CREATININE 0.7 mg/dL (0.6-1.3); PHOSPHORUS 3.2 mg/dL (2.5-4.9); POTASSIUM 5.4 mMol/L (3.7-5.1); SODIUM 131 mMol/L (135-145)
[2016-09-29] MEDS ORDERED: COLCHICINE0.6 MG PO (11:25)
[2016-09-29] MEDS ORDERED: PEPCID20 MG PO (11:27)
[2016-09-29] MEDS ORDERED: AMARYL2 MG PO (11:30)
[2016-09-29] MEDS ORDERED: LEVAQUIN500 MG PO (11:31)
[2016-09-29] MEDS ORDERED: LEVOTHROID (SY50 MCG PO (11:32)
[2016-09-29] MEDS ORDERED: MIRALAX17 GM PO (11:34)
[2016-09-29] MEDS ORDERED: FLOMAX0.4 MG PO (11:35)
[2016-09-29] MEDS ORDERED: NORCO 5-325 TA1 EACH PO (11:39)
[2016-09-29] MEDS ORDERED: TYLENOL325 MG PO (11:41)
== END 2016-09-29 12:40 | disposition home health service (06) | DRG 163 ==
LOC: GPCU 12:57 → GICU 12:57 → GPCU 12:57 → GNTU 08-26 15:33 → GICU 08-26 16:24 → GPCU 08-27 16:30 → GNTU 09-16 14:17 → GICU 09-16 15:49 → GPCU 09-24 18:11
PROVIDERS: Nurse Practitioner Women's Health; Thoracic Surgery (Cardiothoracic Vascular Surgery); ADMIT Internal Medicine Pulmonary Disease
PROC: 0BDN0ZZ Extraction of Right Pleura, Open Approach (ICD-10-PCS; principal; 2016-08-26)
PROC: 02HV33Z Insertion of Infusion Device into Superior Vena Cava, Percutaneous Approach (ICD-10-PCS; principal; 2016-08-26)
PROC: 0BTD0ZZ Resection of Right Middle Lung Lobe, Open Approach (ICD-10-PCS; principal; 2016-08-26)
PROC: 00HU33Z Insertion of Infusion Device into Spinal Canal, Percutaneous Approach (ICD-10-PCS; principal; 2016-08-26)
PROC: 0W9900Z Drainage of Right Pleural Cavity with Drainage Device, Open Approach (ICD-10-PCS; principal; 2016-08-26)
PROC: B548ZZA Ultrasonography of Superior Vena Cava, Guidance (ICD-10-PCS; principal; 2016-08-26)
PROC: 06HY33Z Insertion of Infusion Device into Lower Vein, Percutaneous Approach (ICD-10-PCS; 2016-09-16)
PROC: 0BTF0ZZ Resection of Right Lower Lung Lobe, Open Approach (ICD-10-PCS; 2016-09-16)
PROC: 00HU33Z Insertion of Infusion Device into Spinal Canal, Percutaneous Approach (ICD-10-PCS; 2016-09-16)
PROC: 30233N1 Transfusion of Nonautologous Red Blood Cells into Peripheral Vein, Percutaneous Approach (ICD-10-PCS; 2016-09-16)
DX: J94.8 Other specified pleural conditions (principal); I50.33 Acute on chronic diastolic (congestive) heart failure; J86.0 Pyothorax with fistula; G93.40 Encephalopathy, unspecified; J90 Pleural effusion, not elsewhere classified; E44.0 Moderate protein-calorie malnutrition; J98.2 Interstitial emphysema; F05 Delirium due to known physiological condition; I48.91 Unspecified atrial fibrillation; E11.42 Type 2 diabetes mellitus with diabetic polyneuropathy; F03.90 Unspecified dementia, unspecified severity, without behavioral disturbance, psychotic disturbance, mood disturbance, and anxiety; E87.1 Hypo-osmolality and hyponatremia; D62 Acute posthemorrhagic anemia; I11.0 Hypertensive heart disease with heart failure; J44.9 Chronic obstructive pulmonary disease, unspecified; E03.9 Hypothyroidism, unspecified; R33.9 Retention of urine, unspecified; I25.10 Atherosclerotic heart disease of native coronary artery without angina pectoris; Z68.23 Body mass index [BMI] 23.0-23.9, adult; Z87.891 Personal history of nicotine dependence; Z79.84 Long term (current) use of oral hypoglycemic drugs; L71.1 Rhinophyma; H18.413 Arcus senilis, bilateral; I87.8 Other specified disorders of veins; Z66 Do not resuscitate; F43.20 Adjustment disorder, unspecified; K21.9 Gastro-esophageal reflux disease without esophagitis; H54.41 Blindness, right eye, normal vision left eye
CPT/HCPCS: C1751; G0237; G0424; J0171; J0610; J0690; J1644; J1650; J2060; J2250; J2370; J2405; J3010; J7030; J7040; J7050; J7060; P9016; P9045; P9047

== ENCOUNTER → 2016-10-06 | Outpatient (CLI) | payer MEDICARE ==
[~2016-10-06] MED LIST: ALBUTEROL S2 MG/5 ML PO; AMARYL2 MG PO; COLCHICINE0.6 MG PO; COREG6.25 MG PO; FLOMAX0.4 MG PO; GLUCOPHAGE1000 MG PO; K-TAB 10MEQ10 MEQ PO; LASIX20 MG PO; LEVAQUIN500 MG PO; LEVOTHROID (SY50 MCG PO; MIRALAX17 GM PO; NORCO 5-325 TA1 EACH PO; OXYGEN M-15 INH; PEPCID20 MG PO; SYMBICORT 16010.2 GM INH; TYLENOL325 MG PO
[2016-10-06 15:15] LABS: BASOPHIL # 0.1 K/uL (0.0-0.2); BASOPHIL % 0.6 %; EOSINOPHIL # 0.3 K/uL (0.0-0.5); EOSINOPHIL % 3.1 %; HEMATOCRIT 34.8 % (37.0-53.0); HEMOGLOBIN 11.7 g/dL (11.0-16.0); IMMATURE GRANULOCYTE # 0.1 K/uL (0.0-0.3); IMMATURE GRANULOCYTE % 0.7 %; LYMPHOCYTE # 2.4 K/uL (0.8-4.0); MCH 30.7 pg (27.0-34.0); MCHC 33.6 gm/dL (32.0-36.5); MCV 91.3 fl (83.0-98.0); MONOCYTE # 1.6 K/uL (0.0-1.0); MONOCYTE % 15.4 %; MPV 9.9 fl (9.4-12.4); NEUTROPHIL # (ANC) 5.7 K/uL (1.4-9.0); NEUTROPHIL % 56.2 %; NRBC % 0 /100WBC (0-0.00); PLATELET COUNT 243 K/uL (150-450); RBC 3.81 M/uL (3.50-5.50); RDW-CV 14.2 % (11.9-14.6); WBC 10.1 K/uL (4.0-11.0)
[2016-10-06 15:30] LABS: ANION GAP 13.4 (10.0-19.0); BLOOD UREA NITROGEN 10 mg/dL (6-24); CALCIUM 7.8 mg/dL (8.5-10.5); CHLORIDE 93 mMol/L (96-110); CO2 27 mMol/L (22-32); CREATININE 0.7 mg/dL (0.6-1.3); POTASSIUM 3.4 mMol/L (3.7-5.1); SODIUM 130 mMol/L (135-145)
== END ==
LOC: LNHI 15:08
PROVIDERS: Nurse Practitioner Women's Health
DX: J90 Pleural effusion, not elsewhere classified (principal); I50.23 Acute on chronic systolic (congestive) heart failure; R06.00 Dyspnea, unspecified